=== PATIENT | female | born 1975 | race Asian ===

== ENCOUNTER 2017-05-21 17:07 | Emergency (ER) | payer MEDICAID ==
[~2017-05-21] VITALS: Ht 157.5 cm; Wt 78.5 kg
[2017-05-21 17:20] VITALS: BP 135/75
== END 2017-05-21 19:12 | disposition home or self-care (01) ==
LOC: EDUNIT# 17:11 → ER 17:11
DX: N92.6 Irregular menstruation, unspecified (principal); Z32.02 Encounter for pregnancy test, result negative
CPT/HCPCS: 36415; 81002; 84702